=== PATIENT | female | born 1960 | race Caucasian/White ===

== ENCOUNTER 2018-12-07 17:28 | Emergency (ER) | payer OTHER ==
[2018-12-07] MEDS ORDERED: fentaNYL 100 MCG/2 ML SDV IVPUSH ONE ×2 (17:32→18:29)
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
[2018-12-07] MEDS ORDERED: Lidocaine 2% Jelly 10 ML Urojet MUCMEM ONE (19:07)
[2018-12-07] MEDS ORDERED: HYDROmorphone 0.5 MG/0.5 ML Syringe IVPUSH ONE (19:34)
[2018-12-07] MEDS ORDERED: Bacitracin Oint 1 GM U/D Packet TOP ONE (19:35)
--- NOTE | 2018-12-07 19:51 | CRLCR ---
HISTORY: Trauma. COMPARISON: None. FINDINGS: Two views of the left hand. Suboptimal positioning. No evidence for acute fracture or dislocation. The bones are demineralized. Osteoarthritic changes are noted. No significant soft tissue abnormality. Dictated by Ela Mendosa MD @ Dec 07 2018 7:48PM Signed by Dr. Ela Mendosa @ Dec 07 2018 7:49PM
== END 2018-12-07 21:20 | disposition home or self-care (01) ==
LOC: JP.ED 17:28
DX: S50.812A Abrasion of left forearm, initial encounter (principal); S60.512A Abrasion of left hand, initial encounter; I10 Essential (primary) hypertension; K21.9 Gastro-esophageal reflux disease without esophagitis; Z79.01 Long term (current) use of anticoagulants; Z79.899 Other long term (current) drug therapy; V27.5XXA Motorcycle passenger injured in collision with fixed or stationary object in traffic accident, initial encounter
CPT/HCPCS: 73120; 96374; 96375; 96376; 99283; J1170; J3010